=== PATIENT | female | born 1995 | race Hispanic/Latino ===

== ENCOUNTER 2018-03-06 22:10 | Inpatient (IN) | payer OTHER ==
[2018-03-06 22:19] VITALS: O2SAT 96
--- NOTE | 2018-03-06 22:29 | C.PDOC ---
History Of Present Illness 22 year old female is sent fro admission fro [facility]. Patient was seen and medically cleared at [facility]. Patient was accepted for admisison by Dr. Matt for major depression. Patient denies SI/HI, hallucinations, injury , fall, trauma. Time Seen by Provider: 03/06/18 22:23 Chief Complaint (Nursing): Psychiatric Evaluation History Per: Patient History/Exam Limitations: no limitations Onset/Duration Of Symptoms: Days Current Symptoms Are (Timing): Still Present Suicide/Self Injury Attempted (Context): None Associated Symptoms: Depression. denies: Suicidal Thoughts, Suicidal Plan Recent travel outside of the [facility]: No Additional History Per: Patient Past Medical History Reviewed: Historical Data, Nursing Documentation, Vital Signs Vital Signs: Last Vital Signs Temp 98.1 F 03/06/18 22:13 Pulse 80 03/06/18 22:13 Resp 14 03/06/18 22:13 BP 118/80 03/06/18 22:13 Pulse Ox 96 03/06/18 22:13 - Medical History PMH: Depression, HIV, Post Traumatic Stress Disorder Surgical History: No Surg Hx Family History: States: Unknown Family Hx - Social History Hx Alcohol Use: No Hx Substance Use: Yes - Immunization History Hx Tetanus Toxoid Vaccination: No Hx Influenza Vaccination: No Hx Pneumococcal Vaccination: No Review Of Systems Constitutional: Negative for: Fever, Chills Cardiovascular: Negative for: Chest Pain Respiratory: Negative for: Shortness of Breath Gastrointestinal: Negative for: Nausea, Vomiting, Abdominal Pain Skin: Negative for: Rash Psych: Positive for: Depression. Negative for: Suicidal ideation Physical Exam - Physical Exam Appears: Non-toxic, No Acute Distress Skin: Warm, Dry Head: Normacephalic Eye(s): bilateral: Normal Inspection Neck: Supple Chest: Symmetrical Cardiovascular: Rhythm Regular Respiratory: No Rales, No Rhonchi, No Wheezing Gastrointestinal/Abdominal: Soft, No Tenderness, No Guarding, No Rebound Extremity: Bilateral: Atraumatic, Normal Color And Temperature, Normal ROM Neurological/Psych: Oriented x3, Normal Speech, Normal Cognition Gait: Steady ED Course And Treatment O2 Sat by Pulse Oximetry: 96 (On RA) Pulse Ox Interpretation: Normal Disposition Discussed With : Nadia Matt Comment: accepted the pt on his service and took over the care Doctor Will See Patient In The: Hospital Counseled Patient/Family Regarding: Studies Performed, Diagnosis - Disposition Disposition: HOSPITALIZED Disposition Time: 20:45 Condition: FAIR - Clinical Impression Clinical Impression: Major depression - Scribe Statement The provider has reviewed the documentation as recorded by the Scribe Walter Sarabia All medical record entries made by the Scribe were at my direction and personally dictated by me. I have reviewed the chart and agree that the record accurately reflects my personal performance of the history, physical exam, medical decision making, and the department course for this patient. I have also personally directed, reviewed, and agree with the discharge instructions and disposition.
--- NOTE | 2018-03-06 22:30 | C.PDOC ---
Time Seen by Provider: 03/06/18 22:23 Chief Complaint (Nursing): Psychiatric Evaluation Past Medical History Vital Signs: Last Vital Signs Temp 98.1 F 03/06/18 22:13 Pulse 80 03/06/18 22:13 Resp 14 03/06/18 22:13 BP 118/80 03/06/18 22:13 Pulse Ox 96 03/06/18 22:13 - Medical History PMH: Depression, HIV, Post Traumatic Stress Disorder - Social History Hx Alcohol Use: No Hx Substance Use: Yes - Immunization History Hx Tetanus Toxoid Vaccination: No Hx Influenza Vaccination: No Hx Pneumococcal Vaccination: No ED Course And Treatment O2 Sat by Pulse Oximetry: [address] Nadia Matt Comment: accepted the pt on his service and took over the care at 10:25 PM Doctor Will See Patient In The: Hospital Counseled Patient/Family Regarding: Studies Performed, Diagnosis - Disposition Disposition: HOSPITALIZED Disposition Time: 22:23 Condition: FAIR - POA Present On Arrival: None - Clinical Impression Clinical Impression: Major depression Decision To Admit - Pt Status Changed To: Hospital Disposition Of: Inpatient - Admit Certification Admit to Inpatient:: After my assessment, the patient will require hospitalization for at least two midnights. This is because of the severity of symptoms shown, intensity of services needed, and/or the medical risk in this patient being treated as an outpatient. - InPatient: Physician Admission Certification: I certify that this patient requires 2 or more midnights of care for the following reason:: After my assessment, the patient will require hospitalization for at least two midnights. This is because of the severity of symptoms shown, intensity of services needed, and/or the medical risk in this patient being treated as an outpatient. - . Bed Request Type: Psychiatry Admitting Physician: Nadia Matt Patient Diagnosis: Major depression
--- NOTE | 2018-03-07 00:26 | PCM.BM ---
<Holden Valles - Last Filed: 03/07/18 00:23> Treatment Plan Problems - Problems identified on initial assessmt MAJOR DEPRESSIVE EPISODE Date Initiated: 03/06/18 Time Initiated: 23:55 Assessment reference: NA Status: Active SUICIDAL IDEATION Date Initiated: 03/06/18 Time Initiated: 23:55 Assessment reference: NA Status: Active Treatment assets and liabiliti Patient Assests: adapts well, cooperative, self-reliant, ADL independent, negotiates basic needs Patient Liabilities: live alone, financial problems, poor support system, relationship conflicts, dietary restrictions, medical problems - Milieu Protocol Maintain good personal hygiene: daily Encourage regular showers, daily Remind patient to perform daily oral care, daily Assist patient to perform ADL's Maintain personal safety: every shift Educate patient to report safety concerns to staff, every shift Monitor environment for contraband/sharps Medication safety: Monitor for expected outcome, potential side effects: every shift, Assess barriers to learning: every shift, Assess readiness for medication education: every shift <Nadia Matt - Last Filed: 03/08/18 11:08> - Diagnosis (1) Bipolar affective disorder, depressed, severe Status: Acute Interventions: 03/08/18 11:08 * Assess/adjust medications daily and /or as needed * See patient on an individual basis 7x/week to assess level of manic behaviors and stability * Discuss risks, benefits, side effects and alternatives of medications * <Bernadette Samuel - Last Filed: 03/08/18 13:59> Family Contact Family involvement: Famliy/SO not involved - Goals for Treatment Patient goals for treatment: "I don't know." Discharge/Continuing Care - Education Needs Education Needs: Patient Medication, Patient Coping Skills - Discharge Discharge Criteria: Tolerates medication w/o severe side effects, Reduction of target symptoms Discharge to:: Custodial - Treatment Team Participation Discussed with Family/SO: No Was Patient/Family/SO present at Treatment Team Meeting: Yes
[2018-03-07] MEDS ORDERED: ABACAVIR PO SCH (10:00)
[2018-03-07] MEDS ORDERED: LAMIVUDI PO SCH (10:00)
[2018-03-07] MEDS ORDERED: DOLUTEGRAVIR PO SCH (10:00)
--- NOTE | 2018-03-07 10:49 | PCM.PSYCH ---
Initial Psychiatric Evaluation - Initial Psychiatric Evaluation Type of Admission: Voluntary Legal Status: Capacity Chief Complaint (in patient's own words): I was feeling depressed and suicidal.' History of Present Illness and Precipitating Events: Patient is a 22 years old female who was transfered from [facility] because of depressed mood and suicidal ideation with plan to jump into traffic. Pt. reported history of multiple inpatient psychiatric admissions. She was last discharged from psychiatric hospital more than a year ago. As per the patient, psychiatrist changed almost all of her medications. She became increasingly depressed and suicidal. Went to the hospital to get help. Patient reports history of PTSD, MDD, Borderline Personality, HIV, Obese. Patient reports depressed mood, feelings of hopelessness and hopelessness. She also reports poor sleep and poor appetite. She also reports sometimes irritability, agitation and racing thoughts. However she denies any auditory or visual hallucinations or any paranoia. Patient reports history of multiple suicide attempts. Her last visit was in early 2017, when she overdosed on two bottles of [place]. Pt. has hx. of self- harms Ideation. She denies any history of any homicidal ideation. She has a history of noncompliance with the medications. She reports history of cannabis abuse but denies any drinking or any other drugs. Past medical history Obesity, HIV Current Medications: Active Medications Generic Name Dose Route Start Last Admin Trade Name Freq PRN Reason Stop Dose Admin Aripiprazole 5 mg 03/07/18 10:00 Abilify PO DAILY [facility] Home Med 1 each 03/07/18 10:00 Abacavir/Dolutegravir/Lamivudi [Triumeq 600-50-300 Mg Tablet] PO DAILY KATRIN Hydroxyzine HCl 50 mg 03/06/18 23:57 03/07/18 00:25 Atarax PO 50 mg Q6 PRN Administration Anxiety Trazodone HCl 100 mg 03/06/18 23:57 03/07/18 00:25 Desyrel PO 100 mg HS PRN Administration Anxiety Past Psychiatric History - Past Psychiatric History Previous Treatment History: Inpatient Pertinent Medical Hx (Current Medical&Sleep Prob, Allergies): Allergies Allergy/AdvReac Type Severity Reaction Status Date / Time shrimp Allergy ANAPHYLAXIS Uncoded 03/06/18 22:34 ARIPiprazole [Abilify] 15 mg PO DAILY 03/06/18 Abacavir/Dolutegravir/Lamivudi [Triumeq Tablet] 1 each PO DAILY 03/06/18 Valtrex 1 tab PO DAILY 03/06/18 traZODone [Desyrel] 100 mg PO DAILY 03/06/18 Review of Systems - Review of Systems All systems: reviewed and no additional remarkable complaints except - Psychiatric Psychiatric: Anxiety, Irritability, Mood Swings, Suicidal Ideation Mental Status Examination - Personal Presentation Personal Presentation: Looks stated age - Affect Affect: Constricted, Depressed - Motor Activity Motor Activity: Calm - Reliability in Providing Information Reliability in Providing Information: Fair - Speech Speech: Organized - Mood Mood: Depressed, Anxious - Formal Thought Process Formal Thought Process: No Impairment - Obsessions/Compulsions Obsessions: No Compulsions: No - Cognitive Functions Orientation: Person, Place, Situation, Time Sensorium: Alert Attention/Concentration: Attentive Abstract Thinking: [place] Estimate of Intelligence: Below average Judgement: Imparied, as evidence by: Poor judgement, Imparied, as evidence by: Lack of insight into illness - Risk Risk: Suicidal, Diminished functioning - Limitations Limitations: Living alone DSM 5 DX - DSM 5 DSM 5 Diagnosis: Bipolar depressed severe without psychotic features Borderline personality disorder Ch Cannabis use disorder moderate - Recommended/Plan of Treatment Treatment Recommendations and Plan of Treatment: Bipolar depressed severe without psychotic features Borderline personality disorder Ch Cannabis use disorder moderate CBT Psychotherapy Individual therapy, group therapy [place] therapy Hydroxyzine 25 mg p.o. every 6 hours as needed Abilify 5 mg p.o. daily Zoloft 50 mg daily Trazodone 100 mg p.o. nightly Continue HIV medications
--- NOTE | 2018-03-08 11:08 | PCM.PYCHPN ---
Psychiatric Progress Note - Psychiatric Progress Note Patient seen today, length of contact: 15 min Patient Chief Complaint: I am still feeling depressed.' Problems Identified/Issues Discussed: Patient was seen in the artery, chart reviewed and discussed with staff. She remained depressed and she reports feelings of hopelessness and helplessness. She is very nicely evaluated on an confined to room. She denies any auditory hallucination and paranoia. She is tolerating medication denies any side effects. Symptoms are improving greatly and she needs to stay longer for further stabilization. Psychotherapy was given Medication Change: Yes Medical Record Reviewed: Yes Mental Status Examination - Cognitive Function Orientation: Person, Place, Situation, Time Memory: Intact Attention: WNL Concentration: Poor Association: WNL Fund of Knowledge: Poor - Mood Mood: Depressed, Anxious - Affect Affect: Constricted, Depressed - Speech Speech: Soft - Formal Thought Process Formal Thought Process: No Impairment - Suicidal Ideation Suicidal Ideation: No - Homicidal Ideation Homicidal Ideation: No Goal/Treatment Plan - Goal/Treatment Plan Need for Continued Stay: Discharge may exacerbated symptoms, Severe functional impairment Progress Toward Problem(s) and Goals/Treatment Plan: Bipolar depressed severe without psychotic features Borderline personality disorder Ch Cannabis use disorder moderate CBT Psychotherapy Individual therapy, group therapy [place] [facility] Hydroxyzine 25 mg p.o. every 6 hours as needed Abilify 5 mg p.o. daily Zoloft 50 mg daily Trazodone 100 mg p.o. nightly - Smoking Cessation Smoking Cessation Initiated: No
[2018-03-09 06:17] VITALS: RESP 20
[2018-03-10 06:35] VITALS: TEMP 97.8
[2018-03-11 09:24] VITALS: BP 124/80; PULSE 93
--- NOTE | 2018-03-11 09:57 | PCM.PYCHDC ---
Mental Status Examination - Mental Status Examination Orientation: Person, Place, Situation, Time Memory: Intact Mood: Neutral Affect: Constricted Speech: Soft Attention: WNL Concentration: WNL Association: WNL Fund of Knowledge: WNL Formal Thought Process: No Impairment Description of patient's judgement and insight: GOOD, FAIR Psychotic Thoughts and Behaviors: Denies any AVH Suicidal Ideation: No Current Homicidal Ideation?: No Discharge Summary - Discharge Note Reason for Hospitalization: Patient is a 22 years old female who was transfered from [facility]. because of depressed mood and suicidal ideation with plan to jump into traffic. Pt. reported history of multiple inpatient psychiatric admissions. She was last discharged from psychiatric hospital more than a year ago. As per the patient, psychiatrist changed almost all of her medications. She became increasingly depressed and suicidal. Went to the hospital to get help. Patient reports history of PTSD, MDD, Borderline Personality, HIV, Obese. Patient reports depressed mood, feelings of hopelessness and hopelessness. She also reports poor sleep and poor appetite. She also reports sometimes irritability, agitation and racing thoughts. However she denies any auditory or visual hallucinations or any paranoia. Patient reports history of multiple suicide attempts. Her last visit was in early 2018, when she overdosed on two bottles of [place]. Pt. has hx. of self- harms Ideation. She denies any history of any homicidal ideation. She has a history of noncompliance with the medications. She reports history of cannabis abuse but denies any drinking or any other drugs. Past medical history Obesity, HIV Consultations:: List each consultation separately and include: 1. Reason for request. 2. Findings. 3. Follow-up Summary of Hospital Course include:: 1. Description of specific treatment plan utilized for patients during their course of treatmen. 2. Summarize the time- course for resolution of acute symptoms and/or regressed behaviors. 3. Describe issues identified and worked on during hospitalization. 4. Describe medication utilized. 5. Describe medical problems identified and treated. 6. Reassessment of suicide risk Summary of Hospital Course: Patient is a 22 years old female who was transfered from [facility]. because of depressed mood and suicidal ideation with plan to jump into traffic. Pt. reported history of multiple inpatient psychiatric admissions. She was last discharged from psychiatric hospital more than a year ago. As per the patient, psychiatrist changed almost all of her medications. She became increasingly depressed and suicidal. Went to the hospital to get help. Patient reports history of PTSD, MDD, Borderline Personality, HIV, Obese. Patient reports depressed mood, feelings of hopelessness and hopelessness. She also reports poor sleep and poor appetite. She also reports sometimes irritability, agitation and racing thoughts. However she denies any auditory or visual hallucinations or any paranoia. Patient reports history of multiple suicide attempts. Her last visit was in early 2018, when she overdosed on two bottles of [place]. Pt. has hx. of self- harms Ideation. She denies any history of any homicidal ideation. She has a history of noncompliance with the medications. She reports history of cannabis abuse but denies any drinking or any other drugs. Past medical history Obesity, HIV - Diagnosis (1) Bipolar affective disorder, depressed, severe Current Visit: Yes Status: Acute - Final Diagnosis (DSM 5) Condition upon Discharge: FAIR DSM 5: Bipolar depressed severe without psychotic features Borderline personality disorder Ch Cannabis use disorder moderate Disposition: HOME/ ROUTINE Follow-up Treatment Plan: Bipolar depressed severe without psychotic features Borderline personality disorder Ch Cannabis use disorder moderate CBT Psychotherapy Individual therapy, group therapy [place] therapy Hydroxyzine 25 mg p.o. every 6 hours as needed Abilify 5 mg p.o. daily Zoloft 50 mg daily Trazodone 100 mg p.o. nightly Prescriptions/Medication Reconciliation: Abacavir [Ziagen] 600 mg PO Q24H #30 tab ARIPiprazole [Abilify] 10 mg PO DAILY #30 tab Dolutegravir Sodium [Tivicay] 50 mg PO Q24H #30 tab lamiVUDine [Epivir] 300 mg PO Q24H #30 tab Sertraline [Zoloft] 100 mg PO DAILY #30 tab traZODone [Desyrel] 100 mg PO HS PRN #30 tab PRN Reason: Anxiety
== END 2018-03-11 11:00 | disposition home or self-care (01) | DRG 430 ==
LOC: C.ER 22:10 → C.5E 22:32
PROVIDERS: ADMIT Psychiatry & Neurology Psychiatry; ATTEND Psychiatry & Neurology Psychiatry
DX: F31.4 Bipolar disorder, current episode depressed, severe, without psychotic features (principal); F43.10 Post-traumatic stress disorder, unspecified; F60.3 Borderline personality disorder; R45.851 Suicidal ideations; E66.9 Obesity, unspecified; F12.20 Cannabis dependence, uncomplicated; Z79.899 Other long term (current) drug therapy; Z91.14 Patient's other noncompliance with medication regimen; Z68.38 Body mass index [BMI] 38.0-38.9, adult